=== PATIENT | female | born 1985 | race Caucasian/White ===

== ENCOUNTER 2020-06-14 04:24 | Inpatient (IN) ==
[2020-06-14] MEDS ORDERED: OXYTOCIN 30 UNITS/500 ML BAG IV PRN ×2 (05:00→08:34)
[2020-06-14] MEDS: LACTATED RINGER'S 1,000 ML IV PRN ×2 (05:14→06:39)
[2020-06-14] MEDS ORDERED: BUPIVACAINE 0.25% 30 ML VIAL ONE (05:16)
[2020-06-14] MEDS ORDERED: fentaNYL citrate 100 MCG/2 ML VIAL ONE (05:16)
[2020-06-14] MEDS ORDERED: ePHEDrine sulfate 50 MG/ML AMP ONE (05:16)
[2020-06-14] MEDS ORDERED: fentaNYL 2MCG/ML ROPIV 1.25MG/ML 100 ML BAG EPI ONE (05:17)
[2020-06-14 05:25] LABS: Hematocrit (blood only) 34.5 % (37-47); Hemoglobin 11.4 g/dL (12.0-16.0); Mean Corpuscular Hemoglobin 28.6 pg (25-34); Mean Corpuscular Volume 86.5 fL (80-100); Mean Platelet Volume 10.8 fL (7.4-10.4); Platelet Count 252 K/uL (130-400); RDW Coefficient of Variation 13.9 % (11.5-14.5); RDW Standard Deviation 43.8 fL (36.4-46.3); Red Blood Count 3.99 M/uL (4.2-5.4); White Blood Count 11.14 K/uL (4.8-10.8)
[2020-06-14] MEDS ORDERED: ONDANSETRON INJ 2 MG/ML 2 ML VIAL IV PRN (05:55)
[2020-06-14] MEDS ORDERED: ePHEDrine sulfate 50 MG/ML AMP IV PRN (05:55)
[2020-06-14] MEDS ORDERED: fentaNYL 2MCG/ML ROPIV 1.25MG/ML 100 ML BAG EPI PRN (05:55)
[2020-06-14] MEDS ORDERED: NALOXONE HCL 1 MG in SODIUM CHLORIDE 0.9% 1000ML 1,000 ML IV PRN (05:55)
[2020-06-14] MEDS ORDERED: DiphenhydrAMINE HCL 50 MG/ML VIAL IV PRN (05:55)
[2020-06-14] MEDS ORDERED: NALOXONE HCL 0.4 MG/1 ML VIAL/CARP IV PRN (05:55)
--- NOTE | 2020-06-14 05:58 | Anesthesiology Consultation ---
Date of Service June 14, 2020 Covid 19 negative on 06/08/20. Assessment & Plan Chart Review Chart Review: Patient NOT seen in Pre Admission Testing and Acceptable Risk for Labor Epidural Consults Requested none ASA ASA2 Proposed Anesthesia Anesthesia Type: Labor Epidural and CSE Risk / Benefits Reviewed With: PT / POA / Parent / Guardian, Accepts Plan and Informed Consent Obtained History Height/Weight Height: 5 ft 3 in Weight: 68.492 kg Allergies Allergy/AdvReac Type Severity Reaction Status Date / Time No Known Allergies Allergy Verified 06/14/20 04:42 Medications Home Medications Medication Instructions Recorded Confirmed Last Taken prenat.vits,lillian,vwe-elui-uolig 1 tab PO DAILY 06/14/20 06/14/20 06/13/20 08:00 [ Vitamin] Active Medications Generic Name Dose Route Start Last Admin Trade Name Freq PRN Reason Stop Dose Admin Lactated Ringer's 1,000 mls @ 125 mls/hr 06/14/20 05:00 06/14/20 05:14 Lr IV 06/16/20 04:59 999 mls/hr .Q8H PRN Administration L&D Protocol Protocol NPO Date Last Intake of Fluids: 06/14/20 Time Last Intake of Fluids: 05:00 Date Last Intake of Solids: 06/13/20 Time Last Intake of Solids: 18:00 Past Medical History Medical History Allergic rhinitis Encounter for anatomic survey Encounter for gynecological examination without abnormal finding Exposure to parvovirus (normal spontaneous vaginal delivery) Polycystic ovaries Varicella vaccine Exercise / Class Metabolic Activity II 4-5 Yardwork/Stairs/Walk up hill Past Family History Family History Grandmother (Maternal) Ovarian cancer Other Trisomy 21 Past Surgical History Surgical History H/O oral surgery S/P tonsillectomy Past Anesthesia History No Hx of Anesthesia Complications and No Family Hx of Anesthesia Complications History of PONV No Hx of PONV and No Hx of Motion Sickness Social History Smoking Status: Never smoker Hx Alcohol Use: No Hx Substance Use: No substance use type: does not use Review of Systems no chest pain or sob Physical Exam Vital Signs Last Vital Signs Temp 36.9 C 06/14/20 04:38 Pulse 73 06/14/20 05:53 Resp 18 06/14/20 04:38 BP 128/87 06/14/20 04:49 Pulse Ox 100 06/14/20 05:53 ENMT Mouth: no TMJ abnormality Thyromental Distance: > or= 3.5 Finger Breadths Mallampati Class: II Neck normal visual inspection Respiratory normal respiratory effort Auscultation: lungs clear to auscultation bilaterally Cardiovascular Rate/Rhythm: regular rate and regular rhythm Musculoskeletal Spine: normal cervical ROM Neurologic moves all extremities Psychiatric Orientation: alert and oriented x 3 Testing Laboratory Results 06/14/20 05:12
--- NOTE | 2020-06-14 07:07 | History & Physical Report ---
Date of Service June 14, 2020 Assessment & Plan (1) : Spontaneous labor, admit, epidural. Update: after epidural, AROM clear fluid. /+1 after AROM. Anticipate . Admission and Anticipated Discharge Date Admission Date: June 14, 2020 History of Present Illness Chief Complaint: spontaneous labor Primary Care Provider: NO PCP 35yo @ 40 6/7, contractions every few minutes. No Leaking of fluid or vaginal bleeding. + movement. Allergies Allergy/AdvReac Type Severity Reaction Status Date / Time No Known Allergies Allergy Verified 06/14/20 04:42 Home Medications Home Medications Medication Instructions Recorded Confirmed Type prenat.vits,lillian,pla-tncl-cazef 1 tab PO DAILY 06/14/20 06/14/20 History [ Vitamin] Patient History Medical History Allergic rhinitis Encounter for anatomic survey Encounter for gynecological examination without abnormal finding Exposure to parvovirus (normal spontaneous vaginal delivery) Polycystic ovaries Varicella vaccine Surgical History H/O oral surgery S/P tonsillectomy Family History Grandmother (Maternal) Ovarian cancer Other Trisomy 21 Social History Smoking Status: Never smoker Hx Alcohol Use: No Hx Substance Use: No Preferred Language: Ken[place] Communication Ability: Effective Tomography Technologist Required: No Beliefs That Will Affect Care: None marital status: marital status details: Gino Meanssock (33) [phone] Current Living Situation: Spouse and Family Current Living Situation Comment: lives with spouse and children current occupational status: employed current occupation: Teacher Other Information That Helps Us Care for You: No Feels Safe at Home: Yes Safety Concerns: Feels Safe At This Time Review of Systems All systems reviewed & are unremarkable except as noted in HPI & below Physical Exam Physical Exam: SVE 6/100/0, bulging membranes FHT Cat 1 [place] Q 2-3 min Constitutional: WD/WN, vitals as above Respiratory: normal respiratory effort, lungs clear to auscultation no respiratory distress Cardiovascular: Rate/Rhythm: regular rate and regular rhythm Gastrointestinal (Abdomen): Inspection/Auscultation: abdomen normal to inspection Percussion/Palpation: abdomen soft; abdomen nontender Gravid. No s/s chorio or abruption. Skin: no rashes, warm and dry Psychiatric: A+Ox3, euthymic affect Results & Data ([facility]) Vital Signs (Past 12 Hours) Vital Signs Temp Pulse Resp BP Pulse Ox 06/14/20 06:58 92 H 99 06/14/20 06:57 89 18 132/86 06/14/20 06:53 92 H 98 06/14/20 06:48 89 98 06/14/20 06:43 95 H 128/77 98 06/14/20 06:38 90 97 06/14/20 06:37 100 H 130/63 06/14/20 06:33 109 H 99 06/14/20 06:28 94 H 118/70 98 06/14/20 06:23 91 H 98 06/14/20 06:22 85 119/76 06/14/20 06:18 37.0 C 86 98 06/14/20 06:16 90 16 111/69 06/14/20 06:13 98 H 112/77 97 06/14/20 06:10 90 119/75 06/14/20 06:08 87 97 06/14/20 06:07 88 18 138/80 06/14/20 06:03 91 H 98 06/14/20 05:58 80 98 06/14/20 05:53 73 100 06/14/20 04:49 85 128/87 06/14/20 04:38 36.9 C 76 18 133/90 Coding Level of Care Code None Diagnoses Z34.90
--- NOTE | 2020-06-14 07:34 | Labor Progress Brief Note ---
Date of Service June 14, 2020 Subjective Reason For Note: Routine Evaluation Assessment & Plan (1) Supervision of normal intrauterine in multigravida: - fully dilated - Tracing Class II - begin 2nd stage Admission and Anticipated Discharge Date Admission Date: June 14, 2020 Physical Exam Genitourinary: Cervix: Complete/(+)2 Results & Data ([facility]) Vital Signs (Past 12 Hours) Vital Signs Temp Pulse Resp BP Pulse Ox 06/14/20 07:28 85 122/86 99 06/14/20 07:23 73 98 06/14/20 07:18 74 99 06/14/20 07:14 71 124/69 06/14/20 07:13 73 97 06/14/20 07:08 80 97 06/14/20 07:03 85 98 06/14/20 06:58 92 H 99 06/14/20 06:57 89 18 132/86 06/14/20 06:53 92 H 98 06/14/20 06:48 89 98 06/14/20 06:43 95 H 128/77 98 06/14/20 06:38 90 97 06/14/20 06:37 100 H 130/63 06/14/20 06:33 109 H 99 06/14/20 06:28 94 H 118/70 98 06/14/20 06:23 91 H 98 06/14/20 06:22 85 119/76 06/14/20 06:18 98.6 F 86 98 06/14/20 06:16 90 16 111/69 06/14/20 06:13 98 H 112/77 97 06/14/20 06:10 90 119/75 06/14/20 06:08 87 97 06/14/20 06:07 88 18 138/80 06/14/20 06:03 91 H 98 06/14/20 05:58 80 98 06/14/20 05:53 73 100 06/14/20 04:49 85 128/87 06/14/20 04:38 98.4 F 76 18 133/90 Coding Level of Care Code None Diagnoses Supervision of normal intrauterine in multigravida Z34.80
--- NOTE | 2020-06-14 08:23 | Delivery Summary ---
Vaginal Delivery Summary Date of Service June 14, 2020 Vaginal Delivery Summary Findings: viable male with Apgars of 8 and 9, cord gases are pending. Baby delivered over an intact perineum with a nuchal cord x2 reduced on the perineum. Cord gases and cord blood samples obtained. Placenta delivered spontaneously. Estimated blood loss 300 cc. Labor note: The patient is a 35-year-old 3 para 2 with an EDC of 08 June at 40+ weeks gestational age who presented to labor and delivery in active labor. Patient states the contractions began at approximately 0130 hrs. on day of delivery. She denied rupture of membranes or vaginal bleeding. The patient has had a benign course. Her blood type is O+, antibody negative, rubella immune, hepatitis B negative, she declined all genetic screening, she had a normal 1 hour Glucola x2, and a negative third trimester beta strep culture. Upon admission patient was 4 to 5 centimeters dilated in active labor. Anesthesia was consulted and an epidural was placed. Following placement of the epidural the patient had artificial rupture of membranes for clear fluid. Delivering physician assumed care for the patient at this point. Patient progressed to full dilatation and began her second stage. Patient pushed for approximately 5 minutes delivering the viable male infant. Nuchal cord x2 reduced on the perineum. Remainder of the baby was delivered. Cord g ases and cord blood samples were obtained. Placenta was delivered spontaneously. Inspection of the perineum was shown to be intact. Estimated blood loss 300 cc. Sponge and needle count was correct. [facility] Vaginal Delivery Charge Vaginal Delivery Codes: 11056 global code for the antepartum, delivery, and post-
[2020-06-14 08:27] LABS: Base Excess Cord Arterial Bld -3.2 mEq/L (-9-1.8); CO2 Cord Arterial Blood 59 mmHg (39.1-73.5); HCO3 Cord Arterial Blood 25 mmol/L (19.7-28.5); PO2 Cord Arterial Blood 26 mmHg (4.1-31.7); pH Cord Arterial Blood 7.25 (7.1-7.38)
[2020-06-14 08:32] LABS: Base Excess Cord Venous Blood -2.4 mEq/L (-7.7-1.9); Cord Venous Blood HCO3 22 mmol/L (18.4-26.8); Cord Venous Blood PCO2 39 mmHg (30.4-57.2); Cord Venous Blood PO2 42 mmHg (14.1-43.3); Cord Venous Blood pH 7.38 (7.20-7.44)
[2020-06-14] MEDS ORDERED: HYDROCORTISONE ACETATE 25 MG SUPP PR PRN (08:34)
[2020-06-14] MEDS ORDERED: ACETAMINOPHEN 325 MG TAB PO PRN (08:34)
[2020-06-14] MEDS ORDERED: BENZOCAINE 20% AER SPR 82.5 GM CAN EXT PRN (08:34)
[2020-06-14] MEDS ORDERED: ACETAMINOPHEN W/CODEINE #3 1 TAB PO PRN (08:34)
[2020-06-14] MEDS ORDERED: SUPERCREAM 0.870% 15 GM JAR EXT PRN (08:34)
[2020-06-14] MEDS ORDERED: DIPHTHERIA/TETANUS/PERTUSSIS 0.5 ML SYR/VIAL IM ONE (08:34)
[2020-06-14 08:35] LABS: Oxygen Sat Cord Arterial Blood < 60.0 % (<60)
--- NOTE | 2020-06-14 09:11 | Anesthesia Procedure Note ---
Date of Service June 14, 2020 Anesthesia Post Epidural Note Vital Signs Vital Signs: Temp Pulse Resp BP Pulse Ox 37.0 C 83 18 115/79 99 06/14/20 06:18 06/14/20 08:58 06/14/20 06:57 06/14/20 08:58 06/14/20 07:53 Notes Mental Status: alert / awake / arousable Nausea / Vomiting: adequately controlled Pain: adequately controlled Airway Patency, RR, SpO2: stable & adequate BP & HR: stable & adequate Hydration State: stable & adequate Neuraxial Anesthesia: was administered and sensory block is resolving Anesthetic Complications: no major complications apparent and Pt Satisfied with anesthetic care Epidural: Removed without complications and With tip intact
[2020-06-14] MEDS: IBUPROFEN 600 MG TAB PO PRN (19:58)
[2020-06-14] MEDS: DOCUSATE SODIUM 100 MG CAP PO SCH (20:01)
[2020-06-15] MEDS: IBUPROFEN 600 MG TAB PO PRN ×2 (02:48→09:22)
--- NOTE | 2020-06-15 05:43 | Obstetrical Progress Note ---
Date of Service June 15, 2020 Assessment & Plan (1) : S/p Day 1 - Feels well today. Eating well, voiding well, ambulating well. - Pain well-controlled with ibuprofen 600mg Q4H PRN. - Vital signs reviewed and WNL. - Hemoglobin reviewed. 11.4 yesterday. - Blood Type: O+, GBS negative, Rubella Immune, COVID-19 negative - Continue routine post- care: encourage ambulation, monitor and control pain with Motrin PRN, continue regular OB diet, monitor lochia - Encourage breast feeding. - After discharge, will have 6-wk follow-up with [facility]. (2) Supervision of normal intrauterine in multigravida: Admission and Anticipated Discharge Date Admission Date: June 14, 2020 Supervising Physician Co-Signing Physician Notes Resident Physician Supervision Note: I was present with Dr. Miranda during the history and exam. I discussed the case with the resident and agree with the findings and plan as documented in the note. Any exceptions or clarifications are listed here: Desires d/c, instructions given, f/u in 6 weeks for pp check Documented By: Jm Castillo Jr, MD, FACOG Subjective HPI Jennifer Shelton is a 35 y/o female who is PPD 1 spontaneous vaginal delivery at 40 6/7 weeks. She reports feeling well overall this morning. No abdominal cramping and 0/10 pain well managed on analgesics. Voiding well. Tolerating meals overnight without difficulty. Patient has been able to ambulate some. Passing gas but no bowel movements yet. Has persistent lochia with some improvement this morning. Currently . Review of Systems Review of Systems: ROS Denies fever or chills. Denies shortness of breath or cough. Denies chest pain. Denies breast pain. Denies dysuria. Denies leg pain or leg swelling. Physical Exam Physical Exam: PE General: Alert, oriented. No acute distress. Cardiac: Regular rate and rhythm. No murmurs. Respiratory: Clear to auscultation bilaterally a/p, no wheezes/rales/rhonchi. No increased work of breathing. Symmetrical chest rise. No respiratory distress. Abdomen: Soft, nontender, nondistended. Bowel sounds present. Uterus: Uterine fundus firm, palpable [_] cm below umbilicus. Lower Extremities: No lower extremity edema or swelling. No deep calf pain. Cristobal's negative bilaterally. Results & Data ([facility]) Vital Signs (Past 12 Hours) Vital Signs Temp Pulse Resp BP Pulse Ox 06/15/20 02:45 36.7 C 67 16 117/76 06/14/20 23:15 36.7 C 71 16 131/86 98 06/14/20 20:05 36.3 C L 75 16 132/83 98 Resident Activity Tracking Resident Involvement: Resident Care Provided Care Provided: OB Delivery
[2020-06-15] MEDS ORDERED: FERROUS SULFATE 325 MG TAB PO SCH (08:00)
[2020-06-15] MEDS ORDERED: PRENATAL VITAMIN 1 TAB PO SCH (08:00)
--- NOTE | 2020-06-15 08:00 | Medical Student Progress Note ---
Date of Service June 15, 2020 Assessment & Plan Admission and Anticipated Discharge Date Admission Date: June 14, 2020 Prepare for discharge today with follow up appointment in 6 weeks Subjective HPI Jennifer Shelton is a 35 y/o female who is PPD 1 spontaneous vaginal delivery at 40 6/7 weeks. She reports feeling well this morning. She scores her pain a 0/10 with no abdominal cramping. She is able to ambulate. She is tolerating meals well. No nausea and vomiting. She is passing gas but has not had a bowel movement. She has persistent lochia, but it is decreasing this morning. She is currently . Physical Exam Constitutional: Well appearing Respiratory: normal respiratory effort, lungs clear to auscultation Cardiovascular: RRR, no murmur, no edema no calf tenderness, negative Homans sign, no edema Gastrointestinal (Abdomen): normal bowel sounds, soft, nontender, no hepatosplenomegaly Genitourinary: uterine fundus palpated at umbilicus, firm Results & Data ([facility]) Vital Signs (Past 12 Hours) Vital Signs Temp Pulse Resp BP Pulse Ox 06/15/20 02:45 36.7 C 67 16 117/76 06/14/20 23:15 36.7 C 71 16 131/86 98 06/14/20 20:05 36.3 C L 75 16 132/83 98
[2020-06-15] MEDS: DOCUSATE SODIUM 100 MG CAP PO SCH (08:10)
[2020-06-15] MEDS ORDERED: bisacodyL 5 MG TABEC PO SCH (20:00)
== END 2020-06-15 11:59 | disposition home or self-care (01) | DRG 807 ==
LOC: OPB 04:24 → 4S1 04:29 → 4S2 11:01